=== PATIENT | male | born 1950 | race Caucasian/White ===

== ENCOUNTER 2020-09-05 14:19 | Emergency (ER) | payer OTHER, BC ==
--- OUTSIDE RECORDS SUMMARY | 2020-09-05 14:22 | XMS REPORT | Continuity of Care Document ---
:1950 Author Organization [facility] t Address [address] [place] [address] Care Team Providers Name Role Phone Alex MONTAGUE, K.H. Attending Clinician Problems This patient has no known problems. Allergies, Adverse Reactions, Alerts This patient has no known allergies or adverse reactions. Medications This patient has no known medications. Procedures This patient has no known procedures. Encounters Start End Encounter Admission Attending Care Care Encounter Source Date/Time Date/Time Type Type Clinicians Facility Department ID 2020-08-25 2020-08-25 Refill BEULAH Johnson [id number] 00:00:00 00:00:00 Korin Silva [id number] [place] [id number] [facility] [phone] [facility] 059 [facility] 2020-08-24 2020-08-24 Telephone BEULAH Johnson [id number] 00:00:00 00:00:00 Korin Silva [id number] [place] [id number] Profess[facility] [phone] nal 059 [facility] 2020-03-20 2020-03-20 Office BEULAH Johnson [id number] 11:27:13 12:08:32 Visit Korin Silva [id number] [place] [id number] [facility] [phone] [facility]9 [facility] Results This patient has no known results.
--- NOTE | 2020-09-05 16:34 | EDPHYS ---
Physician Documentation [facility] Name: Olu Palm Age: 70 yrs Sex: Male : 1950 Arrival Date: 09/05/2020 Time: 14:25 Bed 19 Private MD: Dm Munguia E ED Physician Romario Ortega HPI: 09/05 16:19 This 70 yrs old Male presents to ER via Ambulatory with complaints of Toe anibal wound. 16:19 The patient presents with pain, swelling, tenderness, left plantar blister unroofed. anibal The complaints affect the left foot. Context: The problem was sustained at home. Onset: The symptoms/episode began/occurred 2 day(s) ago. Modifying factors: The symptoms are alleviated by elevation of extremity, the symptoms are aggravated by weight bearing, movement, wearing shoes. Associated signs and symptoms: The patient has no apparent associated signs or symptoms. Severity of symptoms: At their worst the symptoms were mild, earlier today, in the emergency department the symptoms are unchanged. The patient has not experienced similar symptoms in the past. Historical: - Allergies: 14:39 No Known Allergies; ca1 - Home Meds: 14:39 Eliquis oral oral [Active]; ca1 - PMHx: 14:39 Hypertension; Diabetes - NIDDM; Obesity; Atrial Fib; ca1 - PSHx: 14:39 Cholecystectomy; ca1 - Immunization history:: Client reports receiving the 2nd dose of the Covid vaccine, Date received: September 05, 2020 Last tetanus immunization: unknown, Pneumococcal vaccine is up to date, Flu vaccine is up to date. - Social history:: Smoking status: Patient denies any tobacco usage or history of. - Family history:: not pertinent. ROS: 16:19 Constitutional: Negative for fever, chills, and weight loss, Eyes: Negative for injury, anibal pain, redness, and discharge, ENT: Negative for injury, pain, and discharge, Neck: Negative for injury, pain, and swelling, Cardiovascular: Negative for chest pain, palpitations, and edema, Respiratory: Negative for shortness of breath, cough, wheezing, and pleuritic chest pain, Abdomen/GI: Negative for abdominal pain, nausea, vomiting, diarrhea, and constipation, Back: Negative for injury and pain, : Negative for injury, bleeding, discharge, and swelling, Skin: Negative for injury, rash, and discoloration, Neuro: Negative for headache, weakness, numbness, tingling, and seizure, Psych: Negative for depression, anxiety, suicide ideation, homicidal ideation, and hallucinations, Allergy/Immunology: Negative for hives, rash, and allergies, Endocrine: Negative for neck swelling, polydipsia, polyuria, polyphagia, and marked weight changes, Hematologic/Lymphatic: Negative for swollen nodes, abnormal bleeding, and unusual bruising. 16:19 MS/extremity: Positive for pain, swelling, tenderness, of the plantar aspect of left first toe. Exam: 16:21 Constitutional: This is a well developed, well nourished patient who is awake, alert, anibal and in no acute distress. Head/Face: Normocephalic, atraumatic. Eyes: Pupils equal round and reactive to light, extra-ocular motions intact. Lids and lashes normal. Conjunctiva and sclera are non-icteric and not injected. Cornea within normal limits. Periorbital areas with no swelling, redness, or edema. ENT: Nares patent. No nasal discharge, no septal abnormalities noted. Tympanic membranes are normal and external auditory canals are clear. Oropharynx with no redness, swelling, or masses, exudates, or evidence of obstruction, uvula midline. Mucous membranes moist. Neck: Trachea midline, no thyromegaly or masses palpated, and no cervical lymphadenopathy. Supple, full range of motion without nuchal rigidity, or vertebral point tenderness. No Meningismus. Chest/axilla: Normal chest wall appearance and motion. Nontender with no deformity. No lesions are appreciated. Cardiovascular: Regular rate and rhythm with a normal S1 and S2. No gallops, murmurs, or rubs. Normal PMI, no JVD. No pulse deficits. Respiratory: Lungs have equal breath sounds bilaterally, clear to auscultation and percussion. No rales, rhonchi or wheezes noted. No increased work of breathing, no retractions or nasal flaring. Abdomen/GI: Soft, non-tender, with normal bowel sounds. No distension or tympany. No guarding or rebound. No evidence of tenderness throughout. Back: No spinal tenderness. No costovertebral tenderness. Full range of motion. Skin: Warm, dry with normal turgor. Normal color with no rashes, no lesions, and no evidence of cellulitis. MS/ Extremity: Pulses equal, no cyanosis. Neurovascular intact. Full, normal range of motion. Neuro: Awake and alert, GCS 15, oriented to person, place, time, and situation. Cranial nerves II-XII grossly intact. Motor strength 5/5 in all extremities. Sensory grossly intact. Cerebellar exam normal. Normal gait. Psych: Awake, alert, with orientation to person, place and time. Behavior, mood, and affect are within normal limits. 16:21 Musculoskeletal/extremity: ROM: full active range of motion, full passive range of motion, Circulation is intact in all extremities. Sensation intact. Compartment Syndrome exam of affected extremity: is normal. Vital Signs: 14:36 BP 180 / 79; Pulse 98; Resp 16 S; Temp 99.2(TE); Pulse Ox 96% on R/A; Weight 149.69 kg ca1 (R); Height 6 ft. 2 in. (187.96 cm) (R); Pain 2/10; 14:36 Body Mass Index 42.37 (149.69 kg, 187.96 cm) ca1 Procedures: 16:22 I \T\ D: Incision and drainage was performed for an abscess of the left Prepped with [facility] Betadine, Anesthetized with nothing. Incised with scissors. Dressing: non-Adherent dressing, the patient tolerated the procedure well, silvadene oint to cover. MDM: 15:59 Patient medically screened. [facility] 09/05 16:19 Order name: Dressing - Wound; Complete Time: 16:36 [facility] 09/05 16:19 Order name: Gloves, Sterile; Complete Time: 16:50 [facility] 09/05 16:19 Order name: Setup Suture Tray; Complete Time: 16:50 [facility] 09/05 16:24 Order name: Post-op shoe; Complete Time: 16:35 [facility] Administered Medications: 16:48 Drug: Bactrim (160 mg-800 mg (DS) 1 tablet Route: PO; rb3 16:57 Follow up: Response: No adverse reaction rb3 16:48 Drug: Silvadene Cream 1 % 1 application Route: Topical; Site: affected area; rb3 16:48 Drug: Doxycycline 200 mg Route: PO; rb3 16:57 Follow up: Response: Medication administered at discharge. rb3 Disposition: 09/05/20 16:34 Discharged to Home. Impression: Type 2 diabetes mellitus, Blister (nonthermal) of toe. - Condition is Stable. - Discharge Instructions: Blisters, Adult, Obesity, Adult, Pressure Injury, Type 2 Diabetes Mellitus, Diagnosis, Adult, [id number], Obesity, Adult, [id number], Type 2 Diabetes Mellitus, Self Care, Adult. - Prescriptions for Doxycycline Hyclate 100 mg Oral Tablet - take 1 tablet by ORAL route every 12 hours; 20 tablet. Silvadene 1 % Topical Cream - Apply to affected area 1 application by TOPICAL route every 12 hours; 50 gram. Bactrim DS 800- 160 mg Oral Tablet - take 1 tablet by ORAL route every 12 hours for 10 days; 20 tablet. - Medication Reconciliation Form, Thank You Letter, Antibiotic Education, Prescription Opioid Use form. - Follow up: Dm Munguia MD; When: 2 - 3 days; Reason: Recheck today's complaints, Continuance of care, Re-evaluation by your physician. Follow up: Emigdio Mcgregor MD; When: 2 - 3 days; Reason: Recheck today's complaints, Continuance of care, Re-evaluation by your physician. - Problem is new. - Symptoms have improved. Signatures: Romario Ortega MD MD cha Acob, Cheryl, RN RN ca1 Tawanna Hilton RN RN rb3 Corrections: (The following items were deleted from the chart) 16:59 16:34 09/05/2020 16:34 Discharged to Home. Impression: Type 2 diabetes mellitus; rb3 Blister (nonthermal) of toe. Condition is Stable. Forms are Medication Reconciliation Form, Thank You Letter, Antibiotic Education, Prescription Opioid Use. Follow up: Dm Munguia; When: 2 - 3 days; Reason: Recheck today's complaints, Continuance of care, Re-evaluation by your physician. Follow up: Emigdio Mcgregor; When: 2 - 3 days; Reason: Recheck today's complaints, Continuance of care, Re-evaluation by your physician. Problem is new. Symptoms have improved. anibal
--- NOTE | 2020-09-05 16:34 | ER ---
Nurse's Notes [facility] Name: Olu Palm Age: 70 yrs Sex: Male : 1950 Arrival Date: 09/05/2020 Time: 14:25 Bed 19 Private MD: Dm Munguia E Diagnosis: Type 2 diabetes mellitus;Blister (nonthermal) of toe Presentation: 09/05 14:36 Chief complaint: Patient states: L big toe, started 2 days ago as a blister at the ca1 bottom. It popped open then now it is kind of raw. Reports a little pain and some bleeding. Coronavirus screen: Client denies travel out of the [place] in the last 14 days. At this time, the client does not indicate any symptoms associated with coronavirus-19. Ebola Screen: Patient negative for fever greater than or equal to 101.5 degrees Fahrenheit, and additional compatible Ebola Virus Disease symptoms Patient denies exposure to infectious person. Patient denies travel to an Ebola-affected area in the 21 days before illness onset. No symptoms or risks identified at this time. Initial Sepsis Screen: Does the patient meet any 2 criteria? No. Patient's initial sepsis screen is negative. Does the patient have a suspected source of infection? No. Patient's initial sepsis screen is negative. Risk Assessment: Do you want to hurt yourself or someone else? Patient reports no desire to harm self or others. Onset of symptoms was September 05, 2020. 14:36 Method Of Arrival: Ambulatory ca1 14:36 Acuity: JW 4 ca1 Historical: - Allergies: 14:39 No Known Allergies; ca1 - Home Meds: 14:39 Eliquis oral oral [Active]; ca1 - PMHx: 14:39 Hypertension; Diabetes - NIDDM; Obesity; Atrial Fib; ca1 - PSHx: 14:39 Cholecystectomy; ca1 - Immunization history:: Client reports receiving the 2nd dose of the Covid vaccine, Date received: September 05, 2020 Last tetanus immunization: unknown, Pneumococcal vaccine is up to date, Flu vaccine is up to date. - Social history:: Smoking status: Patient denies any tobacco usage or history of. - Family history:: not pertinent. Screenin:00 Abuse screen: Denies threats or abuse. Nutritional screening: No deficits noted. rb3 Tuberculosis screening: No symptoms or risk factors identified. Fall Risk None identified. Assessment: 16:00 General: Appears in no apparent distress. comfortable, Behavior is calm, cooperative, rb3 Denies fever. Pain: Complains of pain in plantar aspect of left first toe Pain began 2-3 days ago. Neuro: Level of Consciousness is awake, alert, obeys commands, Oriented to person, place, time, situation. Cardiovascular: Patient's skin is warm and dry. Respiratory: Airway is patent Respiratory effort is even, unlabored, Respiratory pattern is regular, symmetrical. GI: No signs and/or symptoms were reported involving the gastrointestinal system. : No signs and/or symptoms were reported regarding the genitourinary system. Derm: Wound noted Wound is Pt. reports that 2 days ago he got a blister on his left great toe and the blister has popped leaving his toe sensitive. 16:38 Reassessment: Patient appears in no apparent distress at this time. No changes from rb3 previously documented assessment. Vital Signs: 14:36 BP 180 / 79; Pulse 98; Resp 16 S; Temp 99.2(TE); Pulse Ox 96% on R/A; Weight 149.69 kg ca1 (R); Height 6 ft. 2 in. (187.96 cm) (R); Pain 2/10; 14:36 Body Mass Index 42.37 (149.69 kg, 187.96 cm) ca1 ED Course: 14:25 Patient arrived in ED. am2 14:26 Dm Munguia MD is Private Physician. am2 14:37 Triage completed. ca1 14:39 Arm band placed on right wrist. ca1 15:59 Romario Ortega MD is Attending Physician. anibal 16:24 Dm Munguia MD is Referral Physician. anibal 16:25 Emigdio Mcgregor MD is Referral Physician. anibal 16:35 Tawanna Hilton, MANUELA is Primary Nurse. rb3 16:50 Dressings: non-adherent dressing x 2 plantar aspect of left first toe. Ortho shoe mh5 applied to left foot. 16:52 Patient has correct armband on for positive identification. Bed in low position. Call mh5 light in reach. Side rails up X 1. Pulse ox on. NIBP on. 16:57 No provider procedures requiring assistance completed. Patient did not have IV access rb3 during this emergency room visit. Administered Medications: 16:48 Drug: Bactrim (160 mg-800 mg (DS) 1 tablet Route: PO; rb3 16:57 Follow up: Response: No adverse reaction rb3 16:48 Drug: Silvadene Cream 1 % 1 application Route: Topical; Site: affected area; rb3 16:48 Drug: Doxycycline 200 mg Route: PO; rb3 16:57 Follow up: Response: Medication administered at discharge. rb3 Outcome: 16:34 Discharge ordered by MD. barnett 16:57 Discharged to home ambulatory, with Post op shoe rb3 16:57 Condition: stable 16:57 Discharge instructions given to patient, Instructed on discharge instructions, follow up and referral plans. medication usage, Demonstrated understanding of instructions, follow-up care, medications, Prescriptions given X 3. 16:59 Patient left the ED. rb3 Signatures: Romario Ortega MD MD cha Martinez, Maria [facility] Emmy Hopkins am2 Jessica Jimenez RN RN ca1 Tawanna Hilton RN RN rb3
[2020-09-05] MEDS ORDERED: SILVER SULFADIAZINE 1% 25 GM TOP ONE (17:00)
[2020-09-05] MEDS ORDERED: SMZ./TMP. 800/160 MG TABLET ONE (17:00)
[2020-09-05] MEDS ORDERED: DOXYCYCLINE 100 MG CAP PO ONE (17:00)
[2020-09-05 17:03] VITALS: BP 180/79; TEMP 99.2; O2SAT 96
== END 2020-09-05 16:59 | disposition home or self-care (01) ==
LOC: ER 14:19
PROC: 0J9R0ZZ Drainage of Left Foot Subcutaneous Tissue and Fascia, Open Approach (ICD-10-PCS; principal; 2020-09-05)
DX: S90.422A Blister (nonthermal), left great toe, initial encounter (principal); E11.9 Type 2 diabetes mellitus without complications; I10 Essential (primary) hypertension; I48.91 Unspecified atrial fibrillation; Z79.01 Long term (current) use of anticoagulants
CPT/HCPCS: 99284